=== PATIENT | male | born 1985 | race American Indian/Alaskan Native ===

== ENCOUNTER 2020-02-06 21:17 | Emergency (ER) | payer SELFPAY ==
[2020-02-06 23:27] LABS: Basophils # (Auto) 0.1 K/mm3 (0.0-0.1); Basophils % (Auto) 1.1 % (0.0-1.8); Eosinophils # (Auto) 0.3 K/mm3 (0.0-0.4); Eosinophils % (Auto) 4.3 % (0.0-4.3); Hematocrit 42.4 % (35.5-45.6); Hemoglobin 14.6 gm/dl (11.8-15.2); Lymphocytes # (Auto) 1.3 K/mm3 (1.2-5.4); Lymphocytes % (Auto) 18.6 % (13.4-35.0); Mean Corpuscular HGB Conc 34 % (32-34); Mean Corpuscular Volume 93 fl (84-94); Monocytes # (Auto) 0.4 K/mm3 (0.0-0.8); Platelet Count 218 K/mm3 (140-440); Red Blood Count 4.59 M/mm3 (3.65-5.03); Red Cell Distribution Width 14.4 % (13.2-15.2)
[2020-02-06 23:43] LABS: BUN/Creatinine Ratio 10; Blood Urea Nitrogen 9 mg/dL (9-20); Calcium 9.4 mg/dL (8.4-10.2); Hemolysis Index 49
--- NOTE | 2020-02-07 00:15 | Emergency Department Report ---
History of Present Illness - General Chief Complaint: Overdose Stated Complaint: DETOX Time Seen by Provider: 02/06/20 22:48 Source: patient Mode of arrival: Wheelchair Limitations: No Limitations - History of Present Illness Initial Comments: Patient is a 34-year-old F [place] male who states he took between 6 and 7 2 mg Ativan. Patient states he took it because he was angry. States he was not trying to actually kill himself. Patient was noted at the Center he was at to be stumbling and falling. Patient was sent in for evaluation as he also had slurred speech. - Related Data Home Medications Medication Instructions Recorded Confirmed Last Taken Trazodone HCl 150 PO DAILY 02/07/20 1 Month Ago ~01/08/20 Allergies Allergy/AdvReac Type Severity Reaction Status Date / Time No Known Allergies Allergy Unverified 02/06/20 22:52 ED Review of Systems ROS: Stated complaint: DETOX Other details as noted in HPI Comment: Unobtainable due to pts medical conditions ED Past Medical Hx - Social History Smoking Status: Never Smoker Substance Use Type: None - Medications Home Medications: Home Medications Medication Instructions Recorded Confirmed Last Taken Type Trazodone HCl 150 PO DAILY 02/07/20 1 Month Ago History ~01/08/20 ED Physical Exam - General Limitations: No Limitations General appearance: alert, in no apparent distress, appears intoxicated - Head Head exam: Present: atraumatic, normocephalic - Eye Eye exam: Present: normal appearance, PERRL, EOMI - ENT ENT exam: Present: mucous membranes moist - Neck Neck exam: Present: normal inspection - Respiratory Respiratory exam: Present: normal lung sounds bilaterally. Absent: respiratory distress, wheezes - Cardiovascular Cardiovascular Exam: Present: regular rate, normal rhythm, normal heart sounds. Absent: systolic murmur, diastolic murmur, rubs, gallop - GI/Abdominal GI/Abdominal exam: Present: soft, normal bowel sounds. Absent: distended, tenderness, guarding, rebound - Rectal Rectal exam: Present: deferred - Extremities Exam Extremities exam: Present: normal inspection - Back Exam Back exam: Present: normal inspection - Neurological Exam Neurological exam: Present: alert, oriented X3, other (Patient with slurred speech secondary to intoxication) - Psychiatric Psychiatric exam: Present: normal affect, normal mood - Skin Skin exam: Present: warm, dry, intact, normal color. Absent: rash ED Course Vital Signs 02/06/20 02/06/20 02/07/20 21:24 22:48 05:44 Temperature 97.7 F Pulse Rate 100 H 86 78 Respiratory 18 Rate Blood Pressure 112/77 Blood Pressure [Left] O2 Sat by Pulse 99 96 99 Oximetry 02/07/20 02/07/20 02/07/20 07:53 14:38 20:33 Temperature 98.3 F Pulse Rate 71 102 H 96 H Respiratory 14 18 Rate Blood Pressure 128/90 Blood Pressure 118/74 136/80 [Left] O2 Sat by Pulse 99 93 99 Oximetry - Reevaluation(s) Reevaluation #1: 02/07/20 00:17 Patient placed on a monitor will monitor the patient until he reaches clinical sobriety. Reevaluation #2: 02/11/20 17:25 ORTEGA KAM Male : 1985 MedRec# [id number] 02/07/20 14:56 - MH Finger Waver's Note by [facility]: [id number] : 1985 Patient Age: 34 MENTAL HEALTH ASSESSMENT COMPLETED: Pt is a 34 year old male, per triage note, "Pt brought here from [facility] for detox. Staff member Leif says pt has been leaving facility getting high and falling a few times today. Pt says he only took his regular night time meds. 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 Pt now says he took 7 pills of Ativan 2mg tabs." Pt reports no suicidal ideations or plans. Pt reports he took "6 or 7 Ativan because they were mine, and they weren't going to let me have them." Pt is frequently asking the nurse for Ativan and stopped this director [place] [employer] as well as the rounding psyc provider requesting Ativan. Pt became agitated when he was not given Ativan. Pt reports he has goals for future: "I want a place to stay, somewhere I can shower." Pt denies any intent or plan to harm self. Pt was recently sent by this ER two times to [facility] for stabilization; pt followed up w/outpatient provider, but abuses the medications. Pt denies any AH or VH. Pt has fast loud speech when he gets agitated. Pt has poor judgement and fair insight regarding substance abuse. Pt shows minimal readiness for change in terms of substance abuse. Pt denies any thoughts or plans to harm others. Pt has a history of benzo and marijuana abuse. Pt is not forthcoming with use amount or frequency and does not believe he abuses the Ativan or has a problem. 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 Pt was belligerent and aggressive when pt was made aware that it was a Sober living facility, and he can not have Ativan. The pt can not return to mother or aunt due to violence and drug abuse. RECOMMENDATION: Pt does not meet criteria for 1013 at this time; pt will be given a referral to outpatient mental health and substance abuse programs as well as a referral to shelters. Staffed case w/ Alek, Sam PA who agrees w/recommendation. Bella Ramírez LPC Initialized on 02/07/20 14:56 - END OF NOTE ED Medical Decision Making - Lab Data Result diagrams: 02/06/20 23:01 02/06/20 23:01 Lab Results 02/06/20 02/06/20 02/06/20 Range/Units 23:01 23:01 23:01 WBC 7.1 (4.5-11.0) K/mm3 RBC 4.59 (3.65-5.03) M/mm3 Hgb 14.6 (11.8-15.2) gm/dl Hct 42.4 (35.5-45.6) % MCV 93 (84-94) fl MCH 32 (28-32) pg MCHC 34 (32-34) % RDW 14.4 (13.2-15.2) % Plt Count 218 (140-440) K/mm3 Lymph % (Auto) 18.6 (13.4-35.0) % Carlisle % (Auto) 6.0 (0.0-7.3) % Eos % (Auto) 4.3 (0.0-4.3) % Baso % (Auto) 1.1 (0.0-1.8) % Lymph # 1.3 (1.2-5.4) K/mm3 Carlisle # 0.4 (0.0-0.8) K/mm3 Eos # 0.3 (0.0-0.4) K/mm3 Baso # 0.1 (0.0-0.1) K/mm3 Seg Neutrophils % 70.0 (40.0-70.0) % Seg Neutrophils # 4.9 (1.8-7.7) K/mm3 Sodium 139 (137-145) mmol/L Potassium 4.3 (3.6-5.0) mmol/L Chloride 99.5 (98-107) mmol/L Carbon Dioxide 24 (22-30) mmol/L Anion Gap 20 mmol/L BUN 9 (9-20) mg/dL Creatinine 0.9 (0.8-1.5) mg/dL Estimated GFR > 60 ml/min BUN/Creatinine Ratio 10 % Glucose 151 H (75-100) mg/dL Calcium 9.4 (8.4-10.2) mg/dL Salicylates < 0.3 L (2.8-20.0) mg/dL Acetaminophen (10.0-30.0) ug/mL Plasma/Serum Alcohol (0-0.07) % 02/06/20 02/06/20 Range/Units 23:01 23:01 WBC (4.5-11.0) K/mm3 RBC (3.65-5.03) M/mm3 Hgb (11.8-15.2) gm/dl Hct (35.5-45.6) % MCV (84-94) fl MCH (28-32) pg MCHC (32-34) % RDW (13.2-15.2) % Plt Count (140-440) K/mm3 Lymph % (Auto) (13.4-35.0) % Carlisle % (Auto) (0.0-7.3) % Eos % (Auto) (0.0-4.3) % Baso % (Auto) (0.0-1.8) % Lymph # (1.2-5.4) K/mm3 Carlisle # (0.0-0.8) K/mm3 Eos # (0.0-0.4) K/mm3 Baso # (0.0-0.1) K/mm3 Seg Neutrophils % (40.0-70.0) % Seg Neutrophils # (1.8-7.7) K/mm3 Sodium (137-145) mmol/L Potassium (3.6-5.0) mmol/L Chloride (98-107) mmol/L Carbon Dioxide (22-30) mmol/L Anion Gap mmol/L BUN (9-20) mg/dL Creatinine (0.8-1.5) mg/dL Estimated GFR ml/min BUN/Creatinine Ratio % Glucose (75-100) mg/dL Calcium (8.4-10.2) mg/dL Salicylates (2.8-20.0) mg/dL Acetaminophen < 5.0 L (10.0-30.0) ug/mL Plasma/Serum Alcohol < 0.01 (0-0.07) % Critical care attestation.: If time is entered above; I have spent that time in minutes in the direct care of this critically ill patient, excluding procedure time. ED Disposition Clinical Impression: Psychiatric disorder Overdose Qualifiers: Encounter type: initial encounter Injury intent: undetermined intent Qualified Code(s): T50.904A - Poisoning by unspecified drugs, medicaments and biological substances, undetermined, initial encounter Disposition: DC-01 TO HOME OR SELFCARE Is pt being admited?: No Does the pt Need Aspirin: No Condition: Stable Instructions: Suicide Prevention for Adults (ED) Additional Instructions: Follow-up as per mental health provider. Referrals: PRIMARY CARE, [Primary Care Provider] - 3-5 Days
[2020-02-07 00:35] LABS: Bilirubin,Urine NEG (Negative); Blood,Urine NEG (Negative); Color,Urine Yellow (Yellow); Mucus,Urine FEW /HPF; Protein,Urine <15 mg/dL mg/dL (Negative); RBC,Urine < 1.0 /HPF (0.0-6.0); Urobilinogen,Urine < 2.0 mg/dL (<2.0); WBC,Urine < 1.0 /HPF (0.0-6.0)
[2020-02-07 00:38] LABS: Amphetamine Screen,Urine PRESUMPTIVE NEGATIVE; Benzodiazepines Screen,Urine PRESUMPTIVE NEGATIVE; Cocaine Screen,Urine PRESUMPTIVE NEGATIVE; Methadone Screen,Urine PRESUMPTIVE NEGATIVE; Opiate Screen,Urine PRESUMPTIVE NEGATIVE
[2020-02-07 00:55] LABS: Cannabinoid Screen,Urine PRESUMPTIVE POSITIVE
[2020-02-07] MEDS ORDERED: MAGNESIUM SULFATE 0 GM/0 ML BAG IV ONE (04:18)
[2020-02-07] MEDS ORDERED: methylPREDNISolone Sod Succinate 125 MG/2 ML INJ ONE (04:18)
[2020-02-07] MEDS ORDERED: SUCCINYLCHOLINE CHLORIDE 200 MG/10 ML INJ MDV ONE (04:19)
[2020-02-07] MEDS ORDERED: ETOMIDATE 20 MG/10 ML INJ IV ONE (04:19)
[2020-02-07] MEDS ORDERED: LORazepam 1 MG TAB PO ONE (12:23)
[2020-02-07] MEDS ORDERED: ZIPRASIDONE MESYLATE 20 MG VIAL IM ONE (13:46)
[2020-02-07] MEDS ORDERED: diphenhydrAMINE 50 MG/ML VIAL IV ONE (13:47)
[2020-02-07 20:35] VITALS: BP 136/80
== END 2020-02-08 00:42 | disposition home or self-care (01) ==
LOC: ED 21:17
DX: T50.901A Poisoning by unspecified drugs, medicaments and biological substances, accidental (unintentional), initial encounter (principal); F99 Mental disorder, not otherwise specified; Z79.899 Other long term (current) drug therapy; Y92.89 Other specified places as the place of occurrence of the external cause
CPT/HCPCS: 36415; 80048; 80307; 81001; 85025; 96372; 96374; 99284; J1200; J3486; 80320; G0480; J0330; J2930; J3475

== ENCOUNTER 2020-07-04 08:36 | Emergency (ER) | payer SELFPAY ==
[2020-07-04 09:10] VITALS: BP 134/91
== END 2020-07-04 09:39 ==
LOC: ED 08:36
DX: Z76.0 Encounter for issue of repeat prescription (principal); Z53.21 Procedure and treatment not carried out due to patient leaving prior to being seen by health care provider